=== PATIENT | female | born 1995 | race African-American/Black ===

== ENCOUNTER 2018-10-23 13:15 | Emergency (ER) | payer BC, OTHER | END 2018-10-23 13:41 | disposition home or self-care (01) | LOC: BURERS 13:15 | DX: K29.00 Acute gastritis without bleeding (principal); K21.0 Gastro-esophageal reflux disease with esophagitis; I10 Essential (primary) hypertension; E78.5 Hyperlipidemia, unspecified | CPT/HCPCS: 93005 ==

== ENCOUNTER 2019-02-02 14:15 | Outpatient (CLI) | payer BC, OTHER ==
--- NOTE | 2019-02-02 16:56 | RAD ---
RIGHT FOOT THREE VIEWS: 02/02/19 No fracture or periosteal was seen. The bones and joints currently appear normal. IMPRESSION: No acute finding. POS: HOME
== END 2019-02-02 14:16 | disposition home or self-care (01) ==
LOC: BURRAD 14:15
PROVIDERS: ATTEND Nurse Practitioner Family
DX: M79.671 Pain in right foot (principal)

== ENCOUNTER 2020-01-03 15:54 | Emergency (ER) | payer BC, OTHER, SELFPAY ==
[2020-01-04 22:01] LABS: SARS-CoV-2 N Gene Positive; SARS-CoV-2 S Gene Positive; SARS-CoV-2 by NAA DETECTED (NotDetected); SARS-CoV-2 orf1ab Positive
[2020-01-04 22:02] LABS: SARS-CoV-2 MS2 Positive
== END 2020-01-03 16:30 | disposition home or self-care (01) ==
LOC: BURERS 15:54
DX: U07.1 COVID-19 (principal); I10 Essential (primary) hypertension; E78.5 Hyperlipidemia, unspecified; Z79.899 Other long term (current) drug therapy
CPT/HCPCS: 87635; 99283; U0003

== ENCOUNTER 2020-01-06 19:12 | Emergency (ER) | payer SELFPAY ==
[2020-01-06] MEDS ORDERED: Ondansetron PF 4 MG/2 ML Vial ONE (20:03)
[2020-01-06] MEDS ORDERED: Fentanyl 100 MCG/2 ML VIAL ONE (20:03)
[2020-01-06 20:10] LABS: Bilirubin Negative (Negative); Blood, Urine Large (Negative); Clarity Cloudy (Clear); Glucose, Urine (Dipstick) Negative (Negative); Ketone, Urine Negative (Negative); Leukocyte Negative (Negative); Nitrite Positive (Negative); Protein, Urine (Dipstick) 30 mg/dL (Neg-Trace)
[2020-01-06 20:14] LABS: Pregnancy Test - Urine (BHCG) Negative (Negative); Pregu Control Background? CLEAR/WHITE (CLR/WHITE); Pregu Control Bar Appear? YES (CONTROL BAR); Specific Gravity 1.029 (1.002-1.036); Specific Gravity, Urine 1.029 (1.002-1.036)
[2020-01-06 20:16] LABS: Transitional Epithelial 0-3 HPF (None Seen)
[2020-01-06 20:17] LABS: Bacteria/HPF 3+ HPF (None Seen)
[2020-01-06 20:45] LABS: #Lymphocytes 2.2 thou/uL (1.20-3.40); #Monocytes 0.4 thou/uL (0.11-0.59); #Neutrophils 4.7 thou/uL (1.40-6.50); %Basophils 0.6 % (0.0-1.0); %Eosinophils 0.6 % (0.0-10.0); %Lymphocytes 29.9 % (21.0-51.0); %Monocytes 5.9 % (0.0-10.0); Hemoglobin 12.3 g/dL (12.0-16.0); Mean Corpuscular HGB CONC 30.5 g/dL (32.0-36.0); Mean Corpuscular Hemoglobin 26.5 pg (27.0-31.0); Mean Corpuscular Volume 86.9 fL (78.0-98.0); Mean Platelet Volume 8.3 fL (7.4-10.4); Platelet Count 268 thou/uL (130-400); Red Blood Cell (RBC) Count 4.66 mill/uL (4.20-5.40); White Blood Cell (WBC) Count 7.4 thou/uL (4.8-10.8)
[2020-01-06 21:04] LABS: ALT (SGPT) 25 U/L (8-55); AST (SGOT) 18 U/L (5-34); Albumin 4.3 g/dL (3.5-5.0); Alkaline Phosphatase 68 U/L (40-110); Anion Gap 18 mmol/L (10-20); BUN (Urea Nitrogen) 12 mg/dL (7.0-18.7); Bilirubin, Total 0.2 mg/dL (0.2-1.2); Calc. Creatinine Clearance 0 mL/min (70-130); Calcium 9.1 mg/dL (7.8-10.44); Carbon Dioxide 24 mmol/L (22-29); Chloride 104 mmol/L (98-107); Estimated GFR-MDRD Greater than 90; Globulin 3.4 g/dL (2.4-3.5); Glucose 116 mg/dL (70-105); Protein, Total 7.7 g/dL (6.0-8.3); Sodium 142 mmol/L (136-145)
[2020-01-06] MEDS ORDERED: Ketorolac Tromethamine 60 MG/2 ML VIAL ONE (21:42)
--- NOTE | 2020-01-06 22:05 | CT ---
CT ABDOMEN AND PELVIS WITHOUT CONTRAST: Date: 01-06-2020 IV access could not be gain after several attempts, so the exam was done without IV contrast. FINDINGS: The lung bases show no effusion or major infiltrate, however, there is at least one small ground glas s patch in the right lower lobe consistent with the known diagnosis of Covid. There may be a minimal second area in the lingula on the left. Overall, the lung bases are mostly clear. The liver, spleen, pancreas, gallbladder, adrenal glands and abdominal aorta were unremarkable in ginger earance within the limitations of a noncontrast study. The right kidney is larger than left, almost appearing somewhat swollen in comparison. It is hard to assess if there is true hydronephrosis on this noncontrast study, but the ureter does not appear to b e dilated. No renal or ureteral stones were appreciated on the right, though the sensitivity of this study is rather low due to the body habitus. There is a tiny nonobstructing stone in the lower pole o f the left kidney. The bowel shows no dilation or wall thickening. There is no inflammatory change around bowel, and no free air or free fluid was seen. The appendix was identified and appears normal in size and appearanc e. CT of the pelvis showed a 4 cm rim calcified mass in the midline that appears to be associated with t he uterus. I presume it is a uterine fibroid in the process of calcifying. There is no free fluid or inflammatory change in the pelvis. There is some streaking in the soft tissues in the low back at abo ut the L3-4 level that is presumably long-standing and not part of the current problem. IMPRESSION: 1. Apparent swelling of the right kidney compared to the left. Ultrasound could be helpful. Cons ider recently passed stone versus pyelonephritis. 2. Nonobstructing calculus in the lower pole of the left kidney. 3. One or two very small patchy ground glass areas in the lung bases consistent with recent Covi d diagnosis. 4. 4 cm rim calcified pelvic mass in the midline, most likely a calcified uterine fibroid. 5. Appendix appears normal. Findings discussed with Dr. Lal at 2106 on 01-06-2020. POS: HOME
== END 2020-01-06 22:25 | disposition home or self-care (01) ==
LOC: BURERS 19:12
DX: R10.9 Unspecified abdominal pain (principal); R10.813 Right lower quadrant abdominal tenderness; E78.5 Hyperlipidemia, unspecified; I10 Essential (primary) hypertension; Z79.899 Other long term (current) drug therapy
CPT/HCPCS: 36415; 74176; 80053; 81003; 81015; 81025; 85025; 87086; 96372; J1885; J2405; J3010

== ENCOUNTER 2022-01-28 17:31 | Emergency (ER) | payer MEDICAID, OTHER, SELFPAY ==
[2022-01-28 18:25] LABS: #Basophils 0.1 thou/uL (0.0-0.2); #Eosinphils 0.1 thou/uL (0.0-0.7); #Monocytes 0.6 thou/uL (0.11-0.59); #Neutrophils 4.4 thou/uL (1.40-6.50); %Basophils 1.2 % (0.0-1.0); %Lymphocytes 36.5 % (21.0-51.0); %Neutrophils 54.4 % (42.0-75.0); Mean Corpuscular Hemoglobin 27.8 pg (27.0-31.0); Mean Platelet Volume 7.5 fL (7.4-10.4); Platelet Count 315 10x3/uL (130-400); RBC Distribution Width 14.1 % (11.5-14.5); Red Blood Cell (RBC) Count 4.32 mill/uL (4.20-5.40); White Blood Cell (WBC) Count 8.2 10x3/uL (4.8-10.8)
[2022-01-28 18:43] LABS: ALT (SGPT) 19 U/L (8-55); AST (SGOT) 21 U/L (5-34); Albumin 4.3 g/dL (3.5-5.0); Alkaline Phosphatase 41 U/L (40-110); Anion Gap 14 mmol/L (10-20); BUN (Urea Nitrogen) 13 mg/dL (7.0-18.7); Bilirubin, Total 0.2 mg/dL (0.2-1.2); Calc. Creatinine Clearance 0 mL/min (70-130); Carbon Dioxide 22 mmol/L (22-29); Chloride 104 mmol/L (98-107); Estimated GFR 121; Globulin 3.7 g/dL (2.4-3.5); Glucose 78 mg/dL (70-105); Lipase 36 U/L (8-78); Potassium 4.4 mmol/L (3.5-5.1); Sodium 136 mmol/L (136-145)
== END 2022-01-28 19:01 | disposition home or self-care (01) ==
LOC: BURERS 17:31
DX: R10.13 Epigastric pain (principal); I10 Essential (primary) hypertension
CPT/HCPCS: 36415; 80053; 83690; 85025; 99283